=== PATIENT | female | born 1975 | race Caucasian/White ===

== ENCOUNTER → 2017-11-27 | Outpatient (CLI) | payer OTHER ==
[~2017-11-27] VITALS: Ht 157.5 cm; Wt 65.8 kg
[~2017-11-27] MED LIST: GADOBUTROL 7.5 MMOL/7.5 ML (GADAVIST) VIAL IV ONE; IOHEXOL 300 MG/ML 50 ML (OMNIPAQUE 300) VIAL IV ONE; LIDOCAINE 1% INJ 20 ML 20 ML VIAL INJ ONE; LIDOCAINE 1% INJ 20 ML 20 ML VIAL ONE
[2017-11-27 11:00] VITALS: BP 119/61
[2017-11-27 11:35] VITALS: BP 116/71
--- NOTE | 2017-11-27 12:38 | Diagnostic Imaging Report ---
EXAMINATION: Magnetic resonance imaging of the pelvis and right hip without contrast DATE: 11/27/2017. COMPARISON: Right hip arthrogram 11/27/2017. INDICATION: 42-year-old female, right hip pain. Evaluation for labral tear. TECHNIQUE: Magnetic Resonance Imaging sequences were performed of the pelvis and right hip following the intra-articular administration of contrast. TENDONS AND MUSCLES: The gluteus adele muscles and their origins and insertions are intact bilaterally. There is right gluteus minimus tendinopathy. The additional trochanteric tendons are intact. Both common hamstring attachments on the ischial tuberosities are intact and the extensor muscles of the thigh are intact. The visualized portions of the flexors and adductor muscles of the thigh and their attachments on the pelvis and hips are intact. The bilateral iliopsoas tendons are intact. There is increased T1 and T2-weighted signal within the right iliacus muscle which persists on the T1 postcontrast fat saturated sequences. This may relate to contrast material. On the arthrogram images, the contrast appears entirely intra-articular. This may relate to extravasation of contrast following injection. The piriformis muscles are symmetric in size and unremarkable in signal. HIPS AND SACROILIAC JOINTS: The contours of the femoral heads and acetabuli are smooth and symmetric. There is no left hip joint effusion. There is no identified labral tear. There is no paralabral cyst. The sacroiliac joints are unremarkable. LUMBAR SPINE: The visible portions of the lumbar spine are unremarkable on limited assessment. BONE: The bones all have normal configuration. The bone marrow signal is within normal limits. Specifically, negative for fracture, osteomyelitis, osteonecrosis, or marrow replacing process. BURSAE AND SOFT TISSUES: The bursae and additional soft tissues not already described above are unremarkable in appearance. IMPRESSION: 1. Right gluteus minimus tendinopathy. 2. Negative for right hip labral tear. No visualized tear of the left hip labrum. Unremarkable appearance of the bilateral hip joints. 3. Normal bone marrow signal. 4. Altered signal within the right iliacus muscle most likely reflecting contrast extravasation following injection. The additional intramuscular signal and muscle bulk is unremarkable. Dictated by: Dictated on workstation # [id number]
--- NOTE | 2017-11-27 15:54 | Diagnostic Imaging Report ---
INDICATION: Right hip pain. TECHNIQUE: The patient was brought to the procedure room and placed on the table in the supine position. The skin of the right hip was prepped and draped in the usual sterile fashion. A small amount of 1% lidocaine was utilized for local anesthesia. A 20 gauge needle was advanced into the right hip at the femoral head/neck junction laterally. A 15 mL solution of iodinated contrast, normal saline, and gadolinium was injected under fluoroscopic observation. The needle was withdrawn and hemostasis was obtained. 15 seconds of fluoroscopy was utilized. IMPRESSION: Right hip injection of gadolinium contrast solution for MRI using fluoroscopy. Dictated by: Dictated on workstation # [id number]
== END ==
LOC: RAD 10:51
PROVIDERS: ATTEND Orthopaedic Surgery
DX: M67.853 Other specified disorders of tendon, right hip (principal)
CPT/HCPCS: 27093; 73525; 73722

== ENCOUNTER → 2019-07-04 | Outpatient (CLI) | payer OTHER ==
--- NOTE | 2019-07-04 17:06 | Diagnostic Imaging Report ---
EXAM: Bilateral breast ultrasound INDICATION: Bilateral breast lumps FINDINGS: The patient has palpable abnormalities at the inferior aspect of each breast. The diagnostic mammogram performed prior to this study failed to show any sign of malignancy in either breast. On this exam, there is no discrete solid or cystic mass evident in the region of the patient's palpable abnormality. It may be that the palpable abnormalities in question are related to fibroglandular tissue alone. However, if clinical concern regarding an underlying abnormality persists, then biopsy should still be considered. IMPRESSION: There is no evidence for malignancy. Clinical follow up is recommended. ACR category 1. ACR BI-RADS Category 1: Negative. Result letter will be mailed to the patient. Note: At least 10% of breast cancer is not imaged by mammography. Dictated by: Dictated on workstation # [id number]
--- NOTE | 2019-07-05 08:19 | Diagnostic Imaging Report ---
Bilateral diagnostic mammogram. Indication: Bilateral breast lumps. This study was compared to the prior exams of 05/24/2016 and 02/04/2013. At this time the patient does complain of lumps in the inferomedial aspect of each breast. Markers were placed over the area of concern. There is no primary or secondary sign of malignancy evident. Even so, ultrasound would be recommended for further study. The fibroglandular tissue in both breasts is heterogeneously dense. This does limit the sensitivity of this exam. Overall, there does not appear to have been any significant change. There is no primary or secondary sign of malignancy noted. Impression: 1. There is no evidence for malignancy in the area of the patient's palpable abnormalities. Ultrasound of both breasts were recommended for further study. ACR BI-RADS Category 0: Incomplete. (Needs additional imaging evaluation). Result letter will be mailed to the patient. Note: At least 10% of breast cancer is not imaged by mammography. Dictated by: Dictated on workstation # [id number]
== END ==
LOC: RAD 13:29
PROVIDERS: ATTEND Nurse Practitioner Family
DX: N63.10 Unspecified lump in the right breast, unspecified quadrant (principal); N63.20 Unspecified lump in the left breast, unspecified quadrant
CPT/HCPCS: 76642; 77066

== ENCOUNTER 2021-01-28 05:36 | Outpatient (CLI) | payer OTHER ==
[~2021-01-28] VITALS: Ht 157.5 cm; Wt 72.7 kg
[2021-01-28] MEDS ORDERED: SEMA1PEN3 SQ (10:10)
[2021-01-28] MEDS ORDERED: FLDR.1T PO (10:10)
[2021-01-28] MEDS ORDERED: THYR60TA27 PO (10:10)
[2021-01-28] MEDS ORDERED: GUAN1TAB21 PO (10:10)
[2021-01-28] MEDS ORDERED: DAPA1TAB3 PO (10:10)
[2021-01-28] MEDS ORDERED: DAPT350V IV (10:10)
[2021-01-28] MEDS ORDERED: LOSA100T57 PO (10:10)
[2021-01-28] MEDS ORDERED: HYDR-4164 PO (10:10)
[2021-01-28] MEDS ORDERED: METO200T48 PO (10:10)
== END 2021-01-28 11:31 ==
LOC: PREOP 05:36
PROVIDERS: ATTEND Surgery
DX: Z01.818 Encounter for other preprocedural examination (principal)

== ENCOUNTER 2021-02-04 10:08 | Day surgery (SDC) | payer OTHER ==
[2021-02-04] VITALS (11 sets, daily range): BP systolic 132–150; BP diastolic 80–114
[~2021-02-04] VITALS: Ht 157.5 cm; Wt 72.7 kg
[~2021-02-04 10:08] MED LIST changes: +DAPA1TAB3 PO; +DAPT350V IV; +FLDR.1T PO; -GADOBUTROL 7.5 MMOL/7.5 ML (GADAVIST) VIAL IV ONE; +GUAN1TAB21 PO; +HYDR-4164 PO; -IOHEXOL 300 MG/ML 50 ML (OMNIPAQUE 300) VIAL IV ONE; -LIDOCAINE 1% INJ 20 ML 20 ML VIAL INJ ONE; -LIDOCAINE 1% INJ 20 ML 20 ML VIAL ONE; +LOSA100T57 PO; +METO200T48 PO; +SEMA1PEN3 SQ; +THYR60TA27 PO
[2021-02-04] MEDS ORDERED: LIDOCAINE/EPI 1%-1:200,000 (XYLOCAINE) 30 ML VIAL ONE (10:16)
--- NOTE | 2021-02-04 10:16 | Progress Note-Pre Operative ---
Pre-Operative Progress Note H&P Reviewed The H&P was reviewed, patient examined and no changes noted. Date Seen by Provider: Feb 04, 2021 Time Seen by Provider: 10:15 Date H&P Reviewed: Feb 04, 2021 Time H&P Reviewed: 10:15 Pre-Operative Diagnosis: left buttock/lower extremity recurrent abscess with FB GIOVANNY DE LA FUENTE MD Feb 04, 2021 10:16
[2021-02-04] MEDS ORDERED: OXYC1TAB16 PO ×2 (10:18)
--- NOTE | 2021-02-04 10:19 | Discharge Inst-Surgical ---
D/C Lap Instructions-SUDHAKAR New, Converted, or Re-Newed RX: RX on Chart Follow Up Appt in 2 weeks Activity as tolerated wet to dry BID Regular Diet Symptoms to Report: Fever over 101 degree F, Nausea/Vomiting Infection Signs and Symptoms to report: Increased redness, Foul odor of wound, Increased drainage Bathing instructions: May shower Operative Area Clean/Dry; Keep incision clean/dry If any problems/questions: Contact your physician or go to Emergency Room GIOVANNY DE LA FUENTE MD Feb 04, 2021 10:19
[2021-02-04] MEDS ORDERED: ceFAZolin 2 GM IV Premixed 50 ML IV ONE (10:30)
[2021-02-04] MEDS ORDERED: oxyCODONE/APAP 5/325MG (PERCOCET 5) TABLET PO PRN (10:30)
[2021-02-04] MEDS ORDERED: ACETAMINOPHEN 325 MG TABLET PO PRN (10:30)
[2021-02-04] MEDS ORDERED: LACTATED RINGERS 1,000 ML IV PRN (10:30)
[2021-02-04] MEDS ORDERED: fentaNYL INJ 100 MCG/2 ML AMP IVP PRN (10:30)
[2021-02-04] MEDS ORDERED: ONDANSETRON 4 MG/2 ML (SDV) Z0FRAN IVP PRN ×2 (10:30→13:00)
[2021-02-04] MEDS ORDERED: HYDROCORTISONE 100 MG/2 ML (Solu-CORTEF) VIAL ONE (11:11)
[2021-02-04] MEDS ORDERED: proPOfol 200 MG/20 ML (DIPRIVAN) VIAL IV ONE (11:32)
[2021-02-04] MEDS ORDERED: GLYCOPYRROLATE 0.2 MG/ML (ROBINUL) 2 ML VIAL ONE (11:32)
[2021-02-04] MEDS ORDERED: ROCURONIUM 10 MG/ML 5 ML SYRINGE IV ONE (11:32)
[2021-02-04] MEDS ORDERED: fentaNYL INJ 100 MCG/2 ML AMP ONE (11:32)
[2021-02-04] MEDS ORDERED: LIDOCAINE PF 2% 5 ML (XYLOCAINE) VIAL ONE (11:32)
[2021-02-04] MEDS ORDERED: MIDAZOLAM 2 MG/2 ML (VERSED) VIAL ONE (11:32)
[2021-02-04] MEDS ORDERED: NEOSTIGMINE 3 MG/3 ML VIAL ONE (11:32)
[2021-02-04] MEDS ORDERED: ONDANSETRON 4 MG/2 ML (SDV) Z0FRAN ONE (11:32)
[2021-02-04] MEDS ORDERED: SEVOFLURANE (ULTANE) 15 ML INHAL SOLN ONE (12:34)
[2021-02-04] MEDS ORDERED: fentaNYL INJ 100 MCG/2 ML AMP IVP ONE (13:00)
--- NOTE | 2021-02-04 13:47 | OPERATIVE REPORT ---
DATE OF SERVICE: 02/04/2021 ATTENDING PRIMARY CARE PHYSICIAN: Dr. Sharath Sorensen in [place], [place]. PREOPERATIVE DIAGNOSIS: Persistent and recurrent abscess left gluteus status post open repair semimembranosus avulsion. POSTOPERATIVE DIAGNOSIS: Retained foreign body at the level of the semimembranosus and the ischial tuberosity. PROCEDURE PERFORMED: Debridement left subcutaneous tissue, fascia to the level of the ischial bone and removal of foreign body. SURGEON: Giovanny De La Fuente MD. HARBOR BOAT PILOT: Aleksander Knight APRN. ANESTHESIA: General endotracheal. ESTIMATED BLOOD LOSS: Minimal. FINDINGS: Retained foreign body at the level of the semimembranosus and the ischial tuberosity. DISPOSITION: The patient tolerated the procedure well. INDICATIONS FOR PROCEDURE: The patient is a 46-year-old female, who has had a persistent abscess of the left posterior and medial thigh. In 01/2020, she suffered an avulsion of her semimembranosus muscle while wakeboarding. She was seen by orthopedic surgery and then did undergo a repair of the semimembranosus to the ischial tuberosity using a wire suture. After this repair, she did develop multiple infections requiring three to four incision and drainages. She reports that in 08/2019, she underwent an ultrasound, where a 2.7 x 2.2 area of abscess was identified as well as a potential foreign body. She did have a VAC placed at some point and has been on daptomycin. Cultures have grown out MRSA in the past. DESCRIPTION OF PROCEDURE: The patient was brought to the operating room and laid supine on the table. After adequate IV pain and sedative medications and general endotracheal intubation, the patient was then placed in a prone position. The perineum was then prepped and draped in a standard surgical fashion. A 0.5% Marcaine with epinephrine was then used to anesthetize the overlying skin along the previous incision line along the gluteal fold. A skin incision was made using a 15 blade. A significant amount of scar tissue was identified and we proceeded with excision of this scar tissue encompassing the subcutaneous tissue as well as the fascia. We then proceeded with exploration of the insertion of the semimembranosus to the ischial tuberosity and identified the nonabsorbable suture, which was excised. Drainage was sent for culture and sensitivity as well as the suture. The wound was then irrigated and suctioned out. The wound was then closed in layers using 3-0 Vicryl interrupted sutures. Skin was closed using 3-0 Prolene interrupted sutures. The patient tolerated the procedure well. We will start IV normal pain medication as well as a clear liquid diet. When she is tolerating clears, has good pain control with oral pain medications, and ambulating well, we will discharge her home. She will be instructed to do no heavy lifting or exertion for the next two weeks. We will have her continue with current antibiotic regimen. Job ID: [id number] DocumentID: [id number] Dictated Date: 02/04/2021 12:30:02 Digital Art Director Date: 02/04/2021 13:46:17 Dictated By: GIOVANNY DE LA FUENTE MD MTDD
--- NOTE | 2021-02-04 13:52 | Progress Note-Post Operative ---
Post-Operative Progess Note Surgeon (s)/Financial Sales Associate (s) Surgeon GIOVANNY DE LA FUENTE MD Financial Sales Associate: charbel murillo PROCESSING CLERK Pre-Operative Diagnosis left buttock/lower extremity recurrent abscess with FB Post-Operative Diagnosis left semitendinosis and ischial tuberosity foreign body and chronic infection Procedure & Operative Findings Date of Procedure 02/04/21 Procedure Performed/Findings debridement left gluteal subcutaneous, fascia, muscle bone and removal foreign body(5x4cm) Anesthesia Type get Estimated Blood Loss Estimated blood loss (mL): minimal Specimens/Packing Specimens Removed abscess, FB GIOVANNY DE LA FUENTE MD Feb 04, 2021 13:52
[2021-02-04] MEDS ORDERED: DAPTOMYCIN IV NR (14:00)
[2021-02-04] MEDS ORDERED: NS IV NR (14:00)
--- NOTE | 2021-02-04 15:34 | Anesthesia-General Post-Op ---
General Patient Condition Mental Status/LOC: Same as Preop Cardiovascular: Satisfactory Nausea/Vomiting: Absent Respiratory: Satisfactory Pain: Controlled Complications: Absent Post Op Complications Complications None Follow Up Care/Instructions Patient Instructions None needed. Anesthesia/Patient Condition Patient Condition Patient was seen after the procedure and she was doing well, no complaints, stable vital signs, no apparent adverse anesthesia problems. LOGAN VIAL DO Feb 04, 2021 15:34
[2021-02-05] MEDS ORDERED: ACHYD1T PO (02:47)
== END 2021-02-04 14:48 | disposition home or self-care (01) ==
LOC: SDC 10:08
PROVIDERS: ATTEND Surgery
DX: M79.5 Residual foreign body in soft tissue (principal); E11.628 Type 2 diabetes mellitus with other skin complications; L90.5 Scar conditions and fibrosis of skin; L08.89 Other specified local infections of the skin and subcutaneous tissue; I10 Essential (primary) hypertension; E03.9 Hypothyroidism, unspecified; E27.40 Unspecified adrenocortical insufficiency; M19.90 Unspecified osteoarthritis, unspecified site; Z79.899 Other long term (current) drug therapy; Z79.2 Long term (current) use of antibiotics; Z98.890 Other specified postprocedural states
CPT/HCPCS: 84703; 87070; 87075; 87077; 87081; 87186; 87205

== ENCOUNTER 2021-02-05 00:21 | Emergency (ER) | payer OTHER ==
[~2021-02-05] VITALS: Ht 157.5 cm; Wt 72.6 kg
[~2021-02-05 00:21] MED LIST changes: +OXYC1TAB16 PO
[2021-02-05] MEDS ORDERED: fentaNYL INJ 100 MCG/2 ML AMP IVP ONE ×2 (01:30→03:00)
[2021-02-05] MEDS ORDERED: LACTATED RINGERS 1,000 ML IV ONE (01:30)
[2021-02-05] MEDS ORDERED: DOXYCYCLINE INJECTION 100 MG in NS (IVPB) 100 ML IV ONE (01:30)
--- NOTE | 2021-02-05 01:37 | ED Integumentary General ---
General Chief Complaint: Post OP Complications/Pain Stated Complaint: LEFT HIP PAIN,POST OP HIP SURGERY Nursing Triage Note: Pt ambulates to ED 7 with c/o left hip pain s/p surgery. Pt reports having a "hamstring repair and clean out", performed by Dr Mendoza at approximately 1200 02/04/21, no drains placed, only dressing. Current dressing dry/intact, but pt states that she has large hematoma and it drains "running down her leg" earlier. Source: patient Exam Limitations: no limitations History of Present Illness Date Seen by Provider: Feb 05, 2021 Time Seen by Provider: 01:03 Initial Comments Patient to the ER by private conveyance with her significant other and chief complaint of pain in her left leg just inferior to her left buttock related to a I&D by Dr. Mendoza about 12 hours ago. She has been dealing with an infection status post semimembranosus repair by a surgeon in [place] 1 year ago. She has had 4 I&D's and continued many courses of antibiotics and continues to get abscesses there. Foreign body was removed on the most previous surgery by Dr. Mendoza, retained stitch that was sent for culture and sensitivity. Her latest wound culture demonstrated MRSA January 19 that was susceptible to everything except for penicillins and amoxicillin. She has been doing a course of daptomycin. She is not having any fevers chills nausea vomiting diarrhea. Wound after I&D was stitched close and she has had no discharge. She now has a lot of swelling and hard, indurated tissue under the surgical site. She has hydrocodone 7.5 x 325 and it has given her 0 relief of her pain. She has adrenal insufficiency and did receive dexamethasone as well as preop she took 100 mg of hydrocortisone. Allergies and Home Medications Allergies Coded Allergies: erythromycin base (Verified Allergy, Unknown, Vomiting, 01/28/21) morphine (Verified Adverse Reaction, Unknown, Itching, 01/28/21) vancomycin (Verified Adverse Reaction, Unknown, 01/28/21) RETAINED FLUID AND UNABLE TO VOID- NO RENAL FUNCTION CHANGES. Patient Home Medication List Home Medication List Reviewed: Yes Dapagliflozin/Metformin HCl (Xigduo Xr 5 mg-1,000 mg Tablet) 1 Each Tab.bp.24h, 2 EACH PO DAILY, (Reported) Entered as Reported by: ARUN VILLALTA on 01/28/21 1010 Daptomycin (Daptomycin) 350 Mg Vial, 350 MG IV DAILY, (Reported) Entered as Reported by: ARUN VILLALTA on 01/28/21 101 Fludrocortisone Acetate (Fludrocortisone Acetate) 0.1 Mg Tab, 0.1 MG PO DAILY, (Reported) Entered as Reported by: ARUN VILLALTA on 01/28/21 101 Guanfacine HCl (Guanfacine HCl) 1 Mg Tablet, 3 MG PO HS, (Reported) Entered as Reported by: ARUN VILLALTA on 01/28/21 101 Hydrocortisone (Hydrocortisone) 10 Mg Tablet, 30 MG PO DAILY, (Reported) Entered as Reported by: ARUN VILLALTA on 01/28/21 101 Losartan Potassium (Losartan Potassium) 100 Mg Tablet, 100 MG PO HS, (Reported) Entered as Reported by: ARUN VILLALTA on 01/28/21 101 Metoprolol Succinate (Metoprolol Succinate) 200 Mg Tab.er.24h, 200 MG PO HS, (Reported) Entered as Reported by: ARUN VILLALTA on 01/28/21 101 Oxycodone HCl/Acetaminophen (Percocet 7.5-325 mg Tablet) 1 Each Tablet, 1 TAB PO Q4H Prescribed by: GIOVANNY MENDOZA on 02/04/21 1018 Semaglutide (Ozempic) 1 Mg/0.75 Ml Pen.injctr, 1 MG SQ WEEK, (Reported) Entered as Reported by: ARUN VILLALTA on 01/28/21 101 Thyroid,Pork (Web Graphic Designer Thyroid) 60 Mg Tablet, 60 MG PO DAILY, (Reported) Entered as Reported by: ARUN VILLALTA on 01/28/211009 Review of Systems Review of Systems Constitutional: No chills, No fever EENTM: No ear discharge, No ear pain Respiratory: No cough, No short of breath Cardiovascular: No chest pain, No edema Gastrointestinal: No abdominal pain, No nausea, No vomiting Genitourinary: No discharge, No dysuria Musculoskeletal: see HPI; No back pain, No joint pain Skin: see HPI, change in color All Other Systems Reviewed Negative Unless Noted: Yes Past Xzivxcg-Bpgikj-Xucqws Hx Patient Social History Tobacco Use?: No Smokeless Tobacco Frequency: Never a User Use of E-Cig and/or Vaping dev: No Substance use?: No Alcohol Use?: Yes Alcohol Frequency: Couple times a week Pt feels they are or have been: No Immunizations Up To Date Influenza Vaccine Up-to-Date: No; Not Current First/Initial COVID19 Vaccinat: APR 2020 Second COVID19 Vaccination Marco: MAY 2020 COVID19 Vaccine Popped Corn Oven Attendant: Moderna Seasonal Allergies Seasonal Allergies: Yes Past Medical History Surgery/Hospitalization HX: Pt had a "hamstring repair and clean out" by Reji at approximately 1200 on 02/04/21, no drains placed by surgeon Surgeries: No (BMT; LAP AGNIESKZA; HEMORRHOIDECTOMY; LASIK) Abdominal, Adenoidectomy, Section, Eye Surgery, Tonsillectomy Respiratory: No Currently Using CPAP: No Currently Using BIPAP: No Cardiac: Yes Hypertension Neurological: No RN MEDICAL SURGICAL History: Tubal Ligation Sexually Transmitted Disease: No HIV/AIDS: No Genitourinary: No Gastrointestinal: No Musculoskeletal: Yes (L KNEE) Arthritis Endocrine: Yes Adrenal Disease, Hypothyroidsim, Diabetes, Non-Insulin dep HEENT: Yes Cataract Cancer: No Psychosocial: No Integumentary: No Blood Disorders: No Physical Exam Vital Signs Vital Signs - First Documented 02/05/21 00:29 Temp 36.7 Pulse 123 Resp 18 B/P (MAP) 136/97 (110) Pulse Ox 99 O2 Delivery Room Air Capillary Refill : General Appearance: WD/WN, mild distress HEENT: PERRL/EOMI; No pharynx normal (Oropharynx is mildly dry) Neck: full range of motion, normal inspection Cardiovascular: normal peripheral pulses, regular rate, rhythm Respiratory: lungs clear, normal breath sounds, no respiratory distress, no accessory muscle use Gastrointestinal: non tender, soft Neurologic/Psychiatric: alert, normal mood/affect, oriented x 3 Skin: ecchymosis, other (Tightly stitched wound over the left proximal posterior leg approximately 3 to 4 cm long without any discharge. Ecchymoses associated with it as well as hard induration size of a softball.) Progress/Results/Core Measures Results/Orders Lab Results Laboratory Tests Test 02/05/21 01:50 Range/Units White Blood Count 22.7 H 4.3-11.0 10^3/uL Red Blood Count 4.33 3.80-5.11 10^6/uL Hemoglobin 13.2 11.5-16.0 g/dL Hematocrit 39 35-52 % Mean Corpuscular Volume 89 80-99 fL Mean Corpuscular Hemoglobin 31 25-34 pg Mean Corpuscular Hemoglobin Concent 34 32-36 g/dL Red Cell Distribution Width 15.7 H 10.0-14.5 % Platelet Count 371 130-400 10^3/uL Mean Platelet Volume 10.4 9.0-12.2 fL Immature Granulocyte % (Auto) 1 % Neutrophils (%) (Auto) 86 H 42-75 % Lymphocytes (%) (Auto) 6 L 12-44 % Monocytes (%) (Auto) 8 0-12 % Eosinophils (%) (Auto) 0 0-10 % Basophils (%) (Auto) 0 0-10 % Neutrophils # (Auto) 19.4 H 1.8-7.8 10^3/uL Lymphocytes # (Auto) 1.3 1.0-4.0 10^3/uL Monocytes # (Auto) 1.7 H 0.0-1.0 10^3/uL Eosinophils # (Auto) 0.0 0.0-0.3 10^3/uL Basophils # (Auto) 0.1 0.0-0.1 10^3/uL Immature Granulocyte # (Auto) 0.2 H 0.0-0.1 10^3/uL Neutrophils % (Manual) 87 % Lymphocytes % (Manual) 7 % Monocytes % (Manual) 5 % Band Neutrophils 1 % Blood Morphology Comment NORMAL Sodium Level 133 L 135-145 MMOL/L Potassium Level 4.4 3.6-5.0 MMOL/L Chloride Level 97 L 98-107 MMOL/L Carbon Dioxide Level 21 21-32 MMOL/L Anion Gap 15 H 5-14 MMOL/L Blood Urea Nitrogen 41 H 7-18 MG/DL Creatinine 1.75 H 0.60-1.30 MG/DL Estimat Glomerular Filtration Rate 32 BUN/Creatinine Ratio 23 Glucose Level 88 70-105 MG/DL Lactic Acid Level 1.70 0.50-2.00 MMOL/L Calcium Level 10.3 H 8.5-10.1 MG/DL Corrected Calcium 10.3 H 8.5-10.1 MG/DL Total Bilirubin 0.5 0.1-1.0 MG/DL Aspartate Amino Transf (AST/SGOT) 44 H 5-34 U/L Alanine Aminotransferase (ALT/SGPT) 52 0-55 U/L Alkaline Phosphatase 45 40-136 U/L Total Protein 6.5 6.4-8.2 GM/DL Albumin 4.0 3.2-4.5 GM/DL My Orders Orders - BEV MARTÍNEZ Cbc With Automated Diff (02/05/21 01:30) Comprehensive Metabolic Panel (02/05/21 01:30) Blood Culture (02/05/21 01:30) Ed Iv/Invasive Line Start (02/05/21 01:30) Ed Iv/Invasive Line Start (02/05/21 01:30) Vital Signs Adult Sepsis Patie Q15M (02/05/21 01:30) O2 (02/05/21 01:30) Remove Rings In Anticipation O (02/05/21:30) Lactic Acid Analyzer (02/05/21 01:30) Lactated Ringers (Lr 1000 Ml Iv Solution (02/05/21 01:30) Doxycycline Injection (Vibramycin Inject (02/05/21 01:30) Fentanyl Inj (Sublimaze Injection) (02/05/21 01:30) Manual Differential (02/05/21 01:50) Medications Given in ED Current Medications Medications Dose Ordered Sig/Alejandro Route Start Time Stop Time Status Last Admin Dose Admin Doxycycline Hyclate 100 mg/ Sodium Chloride 100 ml @ 100 mls/hr ONCE ONCE IV 02/05/21 01:30 02/05/21 02:29 DC 02/05/21 02:21 100 MLS/HR Fentanyl Citrate 50 mcg ONCE ONCE IVP 02/05/21 01:30 02/05/21 01:31 DC 02/05/21 02:13 50 MCG Lactated Ringer's 1,000 ml @ 0 mls/hr Q0M ONCE IV 02/05/21 01:30 02/05/21 01:31 DC 02/05/21 02:13 999 MLS/HR Vital Signs/I&O 02/05/21 00:29 Temp 36.7 Pulse 123 Resp 18 B/P (MAP) 136/97 (110) Pulse Ox 99 O2 Delivery Room Air Blood Pressure Mean: 110 Progress Progress Note #1: Time: 01:35 Progress Note All but 2 of the stitches superiorly were removed and some sanguinous discharge was allowed to drain onto an ABD pad. Wound culture was obtained of the retained stitch but no preliminary results are back yet. Previously she was susceptible to doxycycline so because of her tachycardia 110-115 heart rate and possible infection source we will initiate a septic work-up. It is clouded by the fact she has been on steroids recently so unless she has a significant elevation of white count, CRP or lactate then we will probably just have her continue her outpatient antibiotics and follow-up with the surgeon tomorrow for reexamination of wound. Liter of fluids should be a little less than 20 mL/kg and it is all the patient wants at this time. 50 mcg of fentanyl to start for pain control Progress Note #2: Time: 02:39 Progress Note Discussed the labs with the patient as well as her close lactate and do not feel at this time that she is septic nor does she. She does not want to stay in the hospital although we did offer her the opportunity. We will complete her antibiotics and a liter of fluids as she does clearly appear to be dry and the patient is in agreement this plan. She then can follow-up with Dr. Mendoza outpatient in the morning which she agrees to do. 50 mcg of fentanyl did give her some modest pain relief but not complete. We will give her another 50 mcg if she still having significant discomfort in the next half hour to 1 hour. Departure Impression Primary Impression: Postoperative complication Qualified Codes: L76.32 - Postprocedural hematoma of skin and subcutaneous tissue following other procedure Additional Impression: Hematoma of left thigh Qualified Codes: S70.12XA - Contusion of left thigh, initial encounter Disposition: 01 HOME, SELF-CARE Condition: Improved Departure-Patient Inst. Referrals: JAK DUBOIS MD (PCP) Primary Care Physician GIOVANNY MENDOZA MD Patient Instructions: HEMATOMA Add. Discharge Instructions: We open the wounds we should start using more. You may need to change your ABD pad as often as it becomes soiled. Continue your antibiotics until you see the culture and sensitivity collected by Dr. Mendoza. Call Dr. Mendoza this morning and request to be seen. Scripts Hydrocodone Bit/Acetaminophen (HYDROcodone/APAP 10/325 TABLET) 1 Ea Tab 1-2 EA PO Q6H PRN for PAIN-BREAKTHROUGH, #20 TAB 0 Refills Prov: BEV MARTÍNEZ 02/05/21 Copy Copies To 1: GIOVANNY MENDOZA MD, TITUS J Feb 05, 2021 01:36
[2021-02-05 02:00] LABS: BASOPHILS # (AUTO) 0.1 10^3/uL (0.0-0.1); BASOPHILS % (AUTO) 0 % (0-10); EOSINOPHILS % (AUTO) 0 % (0-10); HEMATOCRIT 39 % (35-52); HEMOGLOBIN 13.2 g/dL (11.5-16.0); LYMPHOCYTES # (AUTO) 1.3 10^3/uL (1.0-4.0); LYMPHOCYTES % (AUTO) 6 % (12-44); MEAN CORPUSCULAR HEMOGLOBIN 31 pg (25-34); MEAN CORPUSCULAR HGB CONC 34 g/dL (32-36); MEAN CORPUSCULAR VOLUME 89 fL (80-99); MEAN PLATELET VOLUME 10.4 fL (9.0-12.2); MONOCYTES # (AUTO) 1.7 10^3/uL (0.0-1.0); MONOCYTES % (AUTO) 8 % (0-12); NEUTROPHILS # (AUTO) 19.4 10^3/uL (1.8-7.8); NEUTROPHILS % (AUTO) 86 % (42-75); PLATELET COUNT 371 10^3/uL (130-400); WHITE BLOOD COUNT 22.7 10^3/uL (4.3-11.0)
[2021-02-05 02:12] LABS: POTASSIUM 4.4 MMOL/L (3.6-5.0)
[2021-02-05 02:13] LABS: CALCIUM 10.3 MG/DL (8.5-10.1)
[2021-02-05 02:14] LABS: BAND NEUTROPHILS 1 %; LYMPHOCYTES % (MANUAL) 7 %; MONOCYTES % (MANUAL) 5 %; NEUTROPHILS % (MANUAL) 87 %; TOTAL PROTEIN 6.5 GM/DL (6.4-8.2)
[2021-02-05 02:15] LABS: RBC MORPH NORMAL
[2021-02-05 02:16] LABS: BILIRUBIN,TOTAL 0.5 MG/DL (0.1-1.0)
[2021-02-05 02:18] LABS: CREATININE SERUM 1.75 MG/DL (0.60-1.30)
[2021-02-05] MEDS ORDERED: ACHYD1T PO (02:47)
[2021-02-05 03:24] VITALS: BP 135/77
== END 2021-02-05 03:30 | disposition home or self-care (01) ==
LOC: EDUNIT# 00:21 → ER 00:23
DX: L76.32 Postprocedural hematoma of skin and subcutaneous tissue following other procedure (principal); I10 Essential (primary) hypertension; E11.9 Type 2 diabetes mellitus without complications; E03.9 Hypothyroidism, unspecified; Z79.84 Long term (current) use of oral hypoglycemic drugs; Z79.890 Hormone replacement therapy; Z79.899 Other long term (current) drug therapy; Z98.890 Other specified postprocedural states; Z86.14 Personal history of Methicillin resistant Staphylococcus aureus infection; Z88.1 Allergy status to other antibiotic agents; Z88.5 Allergy status to narcotic agent
CPT/HCPCS: 36415; 80053; 83605; 85007; 85027; 87040; 96374; 96375; 96376

== ENCOUNTER → 2021-03-23 | Outpatient (CLI) | payer OTHER ==
[~2021-03-23] MED LIST changes: +ACHYD1T PO
--- NOTE | 2021-03-23 15:45 | Diagnostic Imaging Report ---
INDICATION: Screening for osteoporosis, medication management, long-term glucocorticoid use. COMPARISON: None available, baseline exam FINDINGS: AP Spine L1-L4: [BMD (g/cm2): 1.189] [T-Score: -0.1] [Z-Score: -0.3] [BMD Previous: NA] [BMD % Change: NA] LT Hip Neck: [BMD (g/cm2): 0.961] [T-Score: -0.6] [Z-Score: -0.2] LT Hip Total: [BMD (g/cm2):1.102] [T-Score:0.8] [Z-Score: 0.8] [BMD Previous: NA] [BMD % Change: NA] RT Hip Neck: [BMD (g/cm2):1.012] [T-Score:-0.2] [Z-Score:0.2] RT Hip Total: [BMD (g/cm2):1.125] [T-score:0.9] [Z-Score:1.0] [BMD Previous:NA] [BMD % Change:NA] *Indicates significant change from prior examination based on 95% confidence level. World Health Organization criteria for BMD interpretation classify patients as Normal (T-score at or above -1.0), Osteopenic (T-score between -1.0 and -2.5) or Osteoporotic (T-score at or below -2.5). LIMITATIONS AND MODIFICATION: None. IMPRESSION: 1. Normal bone mineral density. 2. Baseline examination. 3. See below National Osteoporosis Foundation guidelines on when to potentially initiate pharmacologic therapy. Based on the National Osteoporosis Foundation Guidelines, pharmacologic treatment should be initiated in any of the following, unless clinical conditions suggest otherwise: * Any patient with prior fragility fracture of the hip or vertebrae. A spine fracture indicates 5X risk for subsequent spine fracture and 2X risk for subsequent hip fracture. * Osteoporosis (T-score <-2.5). * Postmenopausal women and men age 50 and older with low bone mass/osteopenia (T-score between -1.0 and -2.5) by DXA and 10-year major osteoporotic fracture greater than 20% or a 10-year probability of hip fracture greater than 3%. These fracture risks are supplied above in the FRAX score, if applicable. * Clinician judgement and/or patient preferences may indicate treatment for people with 10-year fracture probabilities above or below these levels. Dictated by: Dictated on workstation # [id number]
--- NOTE | 2021-03-23 16:02 | Diagnostic Imaging Report ---
INDICATION: Routine screening. COMPARISON: 07/04/2019 and 12/19/2018. TECHNIQUE: 2D and 3D bilateral screening mammography was performed with CAD. FINDINGS: Both breasts are heterogeneously dense, limiting the sensitivity of mammography. A benign nodule in the outer posterior left breast appears stable. No new mass or malignant-appearing microcalcifications are seen. The axillae are unremarkable. IMPRESSION: No mammographic features suspicious for malignancy are identified. ACR BI-RADS Category 2: Benign findings. Result letter will be mailed to the patient. Note: At least 10% of breast cancer is not imaged by mammography. Dictated by: Dictated on workstation # [id number]
== END ==
LOC: RAD 14:15
PROVIDERS: ATTEND Nurse Practitioner Family
DX: Z12.31 Encounter for screening mammogram for malignant neoplasm of breast (principal); Z13.820 Encounter for screening for osteoporosis; Z79.52 Long term (current) use of systemic steroids
CPT/HCPCS: 77063; 77067; 77080

== ENCOUNTER → 2021-05-07 | Outpatient (CLI) | payer OTHER ==
--- NOTE | 2021-05-07 15:58 | Diagnostic Imaging Report ---
PROCEDURE: MRI left joint lower extremity without contrast. TECHNIQUE: Multiplanar, multisequence non contrast-enhanced MRI of the left lower extremity was accomplished. INDICATION: Left knee instability with left knee pain. COMPARISON: None. FINDINGS: No acute fracture is seen in the left knee. There is lateral patellar tilt and mild subluxation, but alignment otherwise appears normal. There is no significant joint effusion. The articular cartilage in the patellofemoral compartment demonstrates no full-thickness defects. The cartilage in the medial and lateral compartments appears intact. The medial and lateral menisci appear intact. The posterior cruciate ligament is intact. The anterior cruciate ligament demonstrates increased signal, and there is fiber irregularity proximally, thought to be at least a high-grade partial tear if not complete nondisplaced tear. The medial collateral ligament is intact, although there is mild surrounding edema. The lateral collateral ligamentous complex is intact. The extensor mechanism is intact. The medial and lateral retinacula are intact. There is a small leaking Baldwin's cyst. IMPRESSION: 1. At least high-grade partial if not complete tear of the proximal anterior cruciate ligament. 2. Grade 1 sprain of the medial collateral ligament. 3. Mild lateral patellar tilt and subluxation. No fracture is seen. 4. Leaking small Baldwin's cyst. Dictated by: Dictated on workstation # [id number]
== END ==
LOC: RAD 13:31
PROVIDERS: ATTEND Nurse Practitioner Family
DX: S83.412A Sprain of medial collateral ligament of left knee, initial encounter (principal); S83.102A Unspecified subluxation of left knee, initial encounter; M71.22 Synovial cyst of popliteal space [Baker], left knee; X58.XXXA Exposure to other specified factors, initial encounter
CPT/HCPCS: 73721

== ENCOUNTER → 2022-10-10 | Outpatient (CLI) | payer OTHER ==
--- NOTE | 2022-10-10 12:47 | Diagnostic Imaging Report ---
INDICATION: Routine screening. Comparison is made with prior mammogram from 03/23/2021 and 07/04/2019. 2-D and 3-D bilateral screening mammography was performed with CAD. CAD is utilized. The current study was also evaluated with a Computer Aided Detection (CAD) system. Both breasts are heterogeneously dense, limiting sensitivity of mammography. The parenchymal pattern is stable. There are occasional benign calcifications. No spiculated mass or malignant-appearing microcalcification are seen. Axillae are unremarkable. IMPRESSION: BI-RADS Category 2 No mammographic features suspicious for malignancy are identified. ACR BI-RADS Category 2: Benign findings. Result letter will be mailed to the patient. Note: At least 10% of breast cancer is not imaged by mammography. Dictated by: Dictated on workstation # [id number]
== END ==
LOC: RAD 09:23
PROVIDERS: ATTEND Family Medicine
DX: Z12.31 Encounter for screening mammogram for malignant neoplasm of breast (principal)
CPT/HCPCS: 77063; 77067

== ENCOUNTER → 2022-10-18 | Outpatient (CLI) | payer OTHER ==
--- NOTE | 2022-10-18 17:07 | Diagnostic Imaging Report ---
INDICATION: Screening COMPARISON: 03/23/2021 FINDINGS: AP Spine L1-L4: [BMD (g/cm2): 1.273] [T-Score: 0.6] [Z-Score: 0.4] [BMD Previous: 1.189] [BMD % Change: 7.1*] LT Hip Neck: [BMD (g/cm2): 1.095] [T-Score: 0.4] [Z-Score: 0.8] LT Hip Total: [BMD (g/cm2):1.177] [T-Score:1.3] [Z-Score: 1.5] [BMD Previous: 1.102] [BMD % Change: 6.8*] RT Hip Neck: [BMD (g/cm2):0.981] [T-Score:-0.4] [Z-Score:0.0] RT Hip Total: [BMD (g/cm2):1.125] [T-score:0.9] [Z-Score:1.1] [BMD Previous:1.125] [BMD % Change:0.0] *Indicates significant change from prior examination based on 95% confidence level. World Health Organization criteria for BMD interpretation classify patients as Normal (T-score at or above -1.0), Osteopenic (T-score between -1.0 and -2.5) or Osteoporotic (T-score at or below -2.5). LIMITATIONS AND MODIFICATION: None. FRACTURE RISK (FRAX SCORE): The ten year probability of (%): Major Osteoporotic Fracture: [na] Hip Fracture: [na] IMPRESSION: 1. Normal bone mineral density. 2. no statistically significant difference 3. See below National Osteoporosis Foundation guidelines on when to potentially initiate pharmacologic therapy. Based on the National Osteoporosis Foundation Guidelines, pharmacologic treatment should be initiated in any of the following, unless clinical conditions suggest otherwise: * Any patient with prior fragility fracture of the hip or vertebrae. A spine fracture indicates 5X risk for subsequent spine fracture and 2X risk for subsequent hip fracture. * Osteoporosis (T-score <-2.5). * Postmenopausal women and men age 50 and older with low bone mass/osteopenia (T-score between -1.0 and -2.5) by DXA and 10-year major osteoporotic fracture greater than 20% or a 10-year probability of hip fracture greater than 3%. These fracture risks are supplied above in the FRAX score, if applicable. * Clinician judgement and/or patient preferences may indicate treatment for people with 10-year fracture probabilities above or below these levels. Dictated by: Dictated on workstation # [id number]
--- NOTE | 2022-10-18 18:14 | Diagnostic Imaging Report ---
INDICATION: Follow-up fracture EXAMINATION: Right foot 10/18/2022 COMPARISONS: None FINDINGS: 3 views of the foot. There is a predominantly transverse fracture through the proximal aspect of the 5th metatarsal. Diastases at the fracture site measures just over 4 mm. Minimal overlying callus formation suggest a subacute process. The remaining osseous structures intact. No dislocations. IMPRESSION: 1. Proximal 5th metatarsal fracture with minimal callus formation suggesting a subacute process. No prior imaging is available for comparison. Dictated by: Dictated on workstation # [id number]
--- NOTE | 2022-10-18 19:30 | Diagnostic Imaging Report ---
INDICATION: Follow-up EXAMINATION: Chest 10/18/2022 COMPARISONS: None FINDINGS: The cardiomediastinal silhouette is unremarkable. Pulmonary vasculature normal. There is patchy airspace opacity in the right suprahilar region with mild increased interstitial markings throughout the remaining lungs. No effusions. No pneumothorax. IMPRESSION: 1. Possible infiltrate in the right suprahilar region. Comparison with prior imaging would be useful. Follow-up recommended to assure complete resolution. 2. Mildly coarsened interstitial markings throughout both lungs which could be a chronic finding. Mild edema less likely but correlate with symptoms. 3. Not mentioned in the body of the report a rounded density in the left lower lung most likely represents overlying nipple shadow. This could be reevaluated at follow-up. Dictated by: Dictated on workstation # [id number]
== END ==
LOC: RAD 13:10
PROVIDERS: ATTEND Family Medicine
DX: Z13.820 Encounter for screening for osteoporosis (principal); R91.8 Other nonspecific abnormal finding of lung field; S92.351D Displaced fracture of fifth metatarsal bone, right foot, subsequent encounter for fracture with routine healing; X58.XXXD Exposure to other specified factors, subsequent encounter
CPT/HCPCS: 71046; 73630; 77080

== ENCOUNTER 2023-04-18 14:11 | Outpatient (RCR) | payer OTHER ==
[~2023-04-18] VITALS: Ht 157.5 cm; Wt 72.6 kg
[~2023-04-18 14:11] MED LIST changes: -LOSA100T57 PO; +LOSA100T58 PO
[2023-04-18 16:00] VITALS: BP 165/105
[2023-04-18 16:50] LABS: BASOPHILS # (AUTO) 0.1 10^3/uL (0.0-0.1); BASOPHILS % (AUTO) 0 % (0-10); EOSINOPHILS % (AUTO) 0 % (0-10); HEMATOCRIT 37 % (35-52); HEMOGLOBIN 11.9 g/dL (11.5-16.0); LYMPHOCYTES # (AUTO) 0.3 10^3/uL (1.0-4.0); LYMPHOCYTES % (AUTO) 3 % (12-44); MEAN CORPUSCULAR HEMOGLOBIN 32 pg (25-34); MEAN CORPUSCULAR HGB CONC 33 g/dL (32-36); MEAN CORPUSCULAR VOLUME 98 fL (80-99); MEAN PLATELET VOLUME 10.6 fL (9.0-12.2); MONOCYTES # (AUTO) 0.8 10^3/uL (0.0-1.0); MONOCYTES % (AUTO) 7 % (0-12); NEUTROPHILS % (AUTO) 88 % (42-75); PLATELET COUNT 262 10^3/uL (130-400); WHITE BLOOD COUNT 12.5 10^3/uL (4.3-11.0)
[2023-04-18 17:05] LABS: ALBUMIN 3.6 GM/DL (3.2-4.5); POTASSIUM 4.3 MMOL/L (3.6-5.0)
[2023-04-18 17:09] LABS: BILIRUBIN,TOTAL 0.2 MG/DL (0.1-1.0)
[2023-04-18 17:11] LABS: CREATININE SERUM 0.83 MG/DL (0.60-1.30)
[2023-04-18 17:30] LABS: BAND NEUTROPHILS 2 %; HYPOCHROMASIA SLIGHT; LYMPHOCYTES % (MANUAL) 2 %; METAMYELOCYTES % 1 %; MONOCYTES % (MANUAL) 3 %; NEUTROPHILS % (MANUAL) 92 %; PLATELET ESTIMATE ADEQUATE
== END 2023-04-20 | disposition home or self-care (01) ==
LOC: SDC 14:11
PROVIDERS: ATTEND Internal Medicine Infectious Disease
DX: L03.90 Cellulitis, unspecified (principal); A49.8 Other bacterial infections of unspecified site; Z79.2 Long term (current) use of antibiotics
CPT/HCPCS: 36569; 76937; 80053; 85007; 85027; C1751; 36415